=== PATIENT | female | born 1945 | race Caucasian/White ===

== ENCOUNTER 2016-10-08 17:31 | Inpatient (IN) | payer MEDICARE ==
[~2016-10-08] VITALS: Ht 165.1 cm; Wt 86.0 kg
[2016-10-08 17:32] VITALS: BP 150/92; PULSE 88; RESP 16; TEMP 98.6; O2SAT 96
--- NOTE | 2016-10-08 17:39 | PD ---
Physical Exam Date Seen by Provider: Oct 08, 2016 Time Seen by Provider: 17:37 Narrative 71 YOWF C/O CP AND ABD PAIN. X1HR PAIN PRESSURE 4/10. 9/10 EARLIER. PAIN HAD GONE TO HER BACK AND JAW. + DIAPHORESIS. NO H/O CARDIAC PROBLEMS. VS REVIEWED WAITING FOR BED PLACEMENT Data Data Last Documented VS Vital Signs Date Time Temp Pulse Resp B/P Pulse Ox O2 Delivery O2 Flow Rate FiO2 10/08/16 17:32 98.6 88 16 150/92 96 MDM Supervised Visit with KINGSLEY: Cecil Shea Oct 08, 2016 17:39
[2016-10-08] MEDS ORDERED: SODIUM CHLORIDE 0.9% FLUSH 10 ML FLUSH IVF PRN (17:45)
--- NOTE | 2016-10-08 18:37 | RADRPT ---
EXAM DATE/TIME: 10/08/2016 18:02 [place] COMPARISON: No previous studies available for comparison. INDICATIONS : Chest pain. MEDICAL HISTORY : None. SURGICAL HISTORY : None. ENCOUNTER: Initial ACUITY: 1 day PAIN SCORE: 9/10 LOCATION: Bilateral chest Middle, between shoulder blades. FINDINGS: PA and lateral views of the chest demonstrate the lungs to be symmetrically aerated without evidence of mass, infiltrate or effusion. The cardiomediastinal contours are unremarkable. Osseous structure s are intact. CONCLUSION: 1. No active disease. Cecil Krause MD on October 08, 2016 at 18:35 Board Certified Radiologist. This report was verified electronically.
[2016-10-08 18:54] LABS: AUTOMATED NEUTROPHIL # 4.1 TH/MM3 (1.8-7.7); BASOPHIL % 0.5 % (0.0-2.0); EOSINOPHIL # 0.1 TH/MM3 (0-0.4); EOSINOPHIL % 1.3 % (0.0-4.0); HEMATOCRIT 41.1 % (35.0-46.0); HEMO FLAGS DIFF FINAL; LYMPHOCYTE # 2.5 TH/MM3 (1.0-4.8); MEAN CELL VOLUME 90.8 FL (80.0-100.0); MEAN CORPUSCULAR HEMOGLOBIN 30.5 PG (27.0-34.0); MEAN CORPUSCULAR HGB CONC 33.6 % (32.0-36.0); NEUT % 56.2 % (16.0-70.0); PLATELET COUNT 316 TH/MM3 (150-450); RED BLOOD COUNT 4.53 MIL/MM3 (4.00-5.30); RED CELL DISTRIBUTION WIDTH 14.8 % (11.6-17.2); WHITE BLOOD COUNT 7.2 TH/MM3 (4.0-11.0)
[2016-10-08 19:14] LABS: ANION GAP 5 MEQ/L (5-15); BICARBONATE 29.9 MEQ/L (21.0-32.0); BLOOD UREA NITROGEN 21 MG/DL (7-18); CHLORIDE 104 MEQ/L (98-107); GLOMERULAR FILTRATION RATE 70 ML/MIN (>89); MAGNESIUM 2.6 MG/DL (1.5-2.5); SODIUM (NA) 139 MEQ/L (136-145)
[2016-10-08 19:15] LABS: APTT (PATIENT) 29.7 SEC (24.3-30.1); INTERNATIONAL NORMALIZED RATIO 0.9 RATIO; PROTHROMBIN TIME - PATIENT 10.3 SEC (9.8-11.6)
[2016-10-08 19:20] VITALS: BP_SYST 161; BP_SYST 176; BP_DIAS 84; BP_DIAS 90; PULSE 91; RESP 18; O2SAT 97
[2016-10-08 19:24] LABS: CREATINE KINASE 47 U/L (26-192)
[2016-10-08] MEDS ORDERED: LISI10TA3 PO (19:34)
[2016-10-08] MEDS ORDERED: ACID REFLUX (19:34)
[2016-10-08] MEDS ORDERED: CENTCHW4 CHEW (19:34)
[2016-10-08] MEDS ORDERED: ASPI81CH CHEW (19:34)
[2016-10-08] MEDS ORDERED: ASPIRIN 81 MG CHEW TAB CHEW ONE (19:45)
--- NOTE | 2016-10-08 19:48 | PD ---
HPI Chief Complaint: Chest Pain Time Seen by Provider: 19:15 Travel History International Travel<30 days: No Contact w/Intl Traveler<30days: No Traveled to known affect area: No History of Present Illness HPI 71-year-old female came to the emergency room with history of chest pain that started spontaneously while she was sitting and watching TV about 2 hours ago. Patient says that she had a busy day but was feeling all right. She just finished cooking dinner and sat down to watch some television when she started getting chest pressure that started from the center of her chest and spread across as a band. It was also in her upper abdominal area all across and went to her back and then radiated to both her jaws. It was severe and did not ease up. Her decided to bring her to the emergency room. Once she got here slowly it started to subside. Patient did not take any medications for it. As per her it lasted probably for 1 hour. Currently her pain is 0 out of 10. She cannot think of any aggravating or relieving factors. Patient says she had a similar but less intense pain that did not last for as long about one year ago. She went to see her senior games technician Dr. Degroot who did as per her all sorts of tests including EKG as well as possibly stress test. She was given a clean bill of health. Patient has significant family history for coronary artery disease. Her father and brother both had multiple vessel bypass surgeries. Patient is not a smoker. She has history of hypertension. She does take one baby aspirin every day but did not take one today. [facility] Past Medical History Narrative Medical List of her past medical, surgical, social and family history was reviewed from the nursing note. Diminished Hearing: Yes ([place] LEFT EAR) Hypertension: Yes Tetanus Vaccination: Unknown Influenza Vaccination: Yes ?: Not Ovarian Cysts: Yes Past Surgical History Cholecystectomy: Yes Hysterectomy: Yes Other Surgery: Yes (RHINOPLASTY, CHOLESTEROLGRANULOMA) Family History Family Myocardial Infarction: Yes Social History Alcohol Use: No Tobacco Use: No Substance Use: No Allergies-Medications (Allergen,Severity, Reaction): Coded Allergies: iodine (Verified Allergy, Severe, 10/08/16) Comments List of her allergies reviewed from the nursing note. Reported Meds & Prescriptions Reported Meds & Active Scripts Active Reported [Acid Reflux] Centrum (Multiple Vitamins W/ Minerals) 1 Chew 1 Tab CHEW DAILY Narrative Medication List of her home medications reviewed from the nursing note. Review of Systems Except as stated in HPI: all other systems reviewed are Neg Physical Exam Narrative GENERAL: Awake, alert, anxious, no obvious distress SKIN: Focused skin assessment warm/dry. HEAD: Atraumatic. Normocephalic. EYES: Pupils equal and round. No scleral icterus. No injection or drainage. ENT: No nasal bleeding or discharge. Mucous membranes pink and moist. NECK: Trachea midline. No JVD. CARDIOVASCULAR: Regular rate and rhythm. No murmur appreciated. RESPIRATORY: No accessory muscle use. Clear to auscultation. Breath sounds equal bilaterally. GASTROINTESTINAL: Abdomen soft, non-tender, nondistended. Hepatic and splenic margins not palpable. MUSCULOSKELETAL: No obvious deformities. No clubbing. No cyanosis. No edema. NEUROLOGICAL: Awake and alert. No obvious cranial nerve deficits. Motor grossly within normal limits. Normal speech. PSYCHIATRIC: Appropriate mood and affect; insight and judgment normal. Data Data Last Documented VS Vital Signs Date Time Temp Pulse Resp B/P (MAP) Pulse Ox O2 Delivery O2 Flow Rate FiO2 10/08/16 20:00 77 18 157/71 (99) 98 Room Air 10/08/16 17:32 98.6 Orders Orders Electrocardiogram (10/08/16 17:39) Basic Metabolic Panel (Bmp) (10/08/16 17:41) Ckmb (Isoenzyme) Profile (10/08/16 17:41) Complete Blood Count With Diff (10/08/16 17:41) Magnesium (Mg) (10/08/16 17:41) Prothrombin Time / Inr (Pt) (10/08/16 17:41) Act Partial Throm Time (Ptt) (10/08/16 17:41) Troponin I (10/08/16 17:41) Ecg Monitoring (10/08/16 17:41) Bilateral Bp Monitoring (10/08/16 17:41) Iv Access Insert/Monitor (10/08/16 17:41) Oximetry (10/08/16 17:41) Oxygen Administration (10/08/16 17:41) Sodium Chloride 0.9% Flush (Ns Flush) (10/08/16 17:45) Chest, Pa & Lat (10/08/16 17:41) Aspirin Chew (Aspirin Chew) (10/08/16 19:45) Admit Order (Ed Use Only) (10/08/16 20:10) Labs Laboratory Tests Test 10/08/16 18:07 White Blood Count 7.2 TH/MM3 Red Blood Count 4.53 MIL/MM3 Hemoglobin 13.8 GM/DL Hematocrit 41.1 % Mean Corpuscular Volume 90.8 FL Mean Corpuscular Hemoglobin 30.5 PG Mean Corpuscular Hemoglobin Concent 33.6 % Red Cell Distribution Width 14.8 % Platelet Count 316 TH/MM3 Mean Platelet Volume 8.6 FL Neutrophils (%) (Auto) 56.2 % Lymphocytes (%) (Auto) 35.0 % Monocytes (%) (Auto) 7.0 % Eosinophils (%) (Auto) 1.3 % Basophils (%) (Auto) 0.5 % Neutrophils # (Auto) 4.1 TH/MM3 Lymphocytes # (Auto) 2.5 TH/MM3 Monocytes # (Auto) 0.5 TH/MM3 Eosinophils # (Auto) 0.1 TH/MM3 Basophils # (Auto) 0.0 TH/MM3 CBC Comment DIFF FINAL Differential Comment Prothrombin Time 10.3 SEC Prothromb Time International Ratio 0.9 RATIO Activated Partial Thromboplast Time 29.7 SEC Blood Urea Nitrogen 21 MG/DL Creatinine 0.81 MG/DL Random Glucose 89 MG/DL Calcium Level 8.7 MG/DL Magnesium Level 2.6 MG/DL Sodium Level 139 MEQ/L Potassium Level 4.0 MEQ/L Chloride Level 104 MEQ/L Carbon Dioxide Level 29.9 MEQ/L Anion Gap 5 MEQ/L Estimat Glomerular Filtration Rate 70 ML/MIN Total Creatine Kinase 47 U/L Troponin I LESS THAN 0.02 NG/ML MDM Medical Decision Making Medical Screen Exam Complete: Yes Emergency Medical Condition: Yes Medical Record Reviewed: Yes Interpretation(s) Twelve-lead EKG was reviewed by me. Normal sinus rhythm, normal axis, nonspecific ST-T wave changes. Heart rate of 77 bpm. Differential Diagnosis ACS, non-STEMI Narrative Course 7:46 PM I explained to the patient that her chest pain sounds like a classic angina. The fact that this happened at rest and concern for unstable angina. I have ordered 2 baby aspirins for her. Blood test results of back and her troponin is negative. However given the classic nature of the history as well as significant family history and history of hypertension and her age I have decided to admit her. I discussed the case with Dr. Oseguera who is covering for her senior games technician. He agreed. He wants the patient to be nothing by mouth after midnight in preparation for possible cardiac catheterization tomorrow. Procedures EKG Prior to Arrival: Yes Diagnosis Primary Impression: Chest pain Admitting Information Admitting Physician Requests: Observation Scripts Nitroglycerin SL (Nitroglycerin SL) 0.4 Mg Subl 0.4 MG SL DIRECTED Y for CHEST PAIN, #15 TAB.SL 0 Refills ONE TABLET UNDER THE TONGUE NEEDED FOR CHEST PAIN, MAY REPEAT EVERY FIVE MINUTES FOR A TOTAL OF 3 DOSES OR CALL 911 IF NO RELIEF Prov: Brayden Jacobs MD 10/09/16 Pravastatin (Pravachol) 40 Mg Tab 40 MG PO DAILY for cholesterol, #30 TAB 0 Refills Prov: Brayden Jacobs MD 10/09/[address] (Adult Aspirin EC Low Strength) 81 Mg Tabec 81 MG PO DAILY for cad, #30 TAB 0 Refills Prov: Brayden Jacobs MD 10/09/16 Metoprolol Tartrate (Metoprolol Tartrate) 25 Mg Tab 25 MG PO Q12HR for htn, #60 TAB 0 Refills Prov: Brayden Jacobs MD 10/09/16 Janusz Robles MD Oct 08, 2016 19:48
[2016-10-08 20:00] VITALS: BP 157/71; PULSE 77; RESP 18; O2SAT 98
[2016-10-08] MEDS ORDERED: NITROGLYCERIN 2% OINT 1 GM PACKET TOPICAL PRN (20:30)
[2016-10-08] MEDS ORDERED: ACETAMINOPHEN/HYDROcodone 325 MG/5 MG TAB PO PRN (20:30)
[2016-10-08] MEDS ORDERED: LACTULOSE SYRUP 20 GM/30 ML CUP PO PRN (20:30)
[2016-10-08] MEDS ORDERED: MORPHINE SULFATE 4 MG/ML INJ IV PRN (20:30)
[2016-10-08] MEDS ORDERED: ONDANSETRON HCL 4 MG/2 ML VIAL IVP PRN (20:30)
[2016-10-08] MEDS ORDERED: HEPARIN-D5W 25,000 U/250 ML 250 ML IV SCH (20:30)
[2016-10-08] MEDS ORDERED: SODIUM CHLORIDE 0.9% FLUSH 10 ML FLUSH IV FLUSH PRN (20:30)
[2016-10-08] MEDS ORDERED: BISACODYL 10 MG SUPP RECTAL PRN (20:30)
[2016-10-08] MEDS ORDERED: SENNOSIDES 8.6 MG TAB PO PRN (20:30)
[2016-10-08] MEDS ORDERED: ACETAMINOPHEN 325 MG TAB PO PRN (20:30)
[2016-10-08] MEDS ORDERED: MAGNESIUM HYDROXIDE SUSP 30 ML CUP PO PRN (20:30)
--- NOTE | 2016-10-08 20:34 | HHI.HP ---
[facility] Service [place] [facility] Primary Care Physician Dwight Arceo M.D. Admission Diagnosis chest pain, unstable angina Diagnoses: (1) Chest pain Diagnosis: Principal (2) Unstable angina Diagnosis: Principal (3) Dehydration Diagnosis: Principal (4) HTN (hypertension) Diagnosis: Principal Travel History International Travel<30 Days: No Contact w/Intl Traveler <30 Da: No Traveled to Known Affected Are: No History of Present Illness This is a 71-year-old female with a PMH of HTN who presented to the ER with complaints of acute onset of chest pain starting earlier tonight. States that she was watching TV when she had sudden onset of severe pressure-like chest pain with radiation to her neck and jaw. Reports associated SOB during episode of chest pain. Follows w/ Dr. Degroot as outpatient, reports previous Stress Test approx 1yr ago, reportedly normal per patient. On arrival, BP 150/92, HR 88, O2 sat 96% on RA, Afebrile. CBC unremarkable. Camille unremarkable except for BUN 21. GFR 70. Troponin negative. INR 0.9. CXR with no acute findings. Dr. Oseguera consulted by ER physician, recommended admission w/ plan for Cath in am. Pt currently chest pain free. Review of Systems Except as stated in HPI: all other systems reviewed are Neg ROS: 14 point review of systems otherwise negative. Past Family Social History Past Medical History PMH: HTN Past Surgical History PAST SURGICAL HISTORY: Cholecystectomy, Hysterectomy, Rhinoplasty Allergies: Coded Allergies: iodine (Verified Allergy, Severe, 10/08/16) Family History PAST FAMILY HISTORY: Reviewed. No h/o DM or CAD Social History PAST SOCIAL HISTORY: Negative for alcohol, tobacco or drugs. Physical Exam Vital Signs Vital Signs Date Time Temp Pulse Resp B/P Pulse Ox O2 Delivery O2 Flow Rate FiO2 10/08/16 19:20 91 18 176/84 97 Room Air 161/90 10/08/16 19:20 18 97 Room Air 10/08/16 19:20 97 Room Air 10/08/16 17:32 98.6 88 16 150/92 96 Physical Exam PE: GENERAL: Very pleasant elderly white female in no acute distress. HEENT: PERRLA, EOMI. No scleral icterus or conjunctival pallor. No lid lag or facial droop. CARDIOVASCULAR: Regular rate and rhythm. No obvious murmurs to auscultation. No chest tenderness to palpation. RESPIRATORY: No obvious rhonchi or wheezing. Clear to auscultation. Breath sounds equal bilaterally. GASTROINTESTINAL: Abdomen soft, non-tender, nondistended. BS normal. MUSCULOSKELETAL: Extremities without clubbing, cyanosis, or edema. No obvious deformities. NEUROLOGICAL: Awake, alert and oriented x4. No focal neurologic deficits. Moving both upper and lower extremities spontaneously. Laboratory Laboratory Tests Test 10/08/16 18:07 White Blood Count 7.2 Red Blood Count 4.53 Hemoglobin 13.8 Hematocrit 41.1 Mean Corpuscular Volume 90.8 Mean Corpuscular Hemoglobin 30.5 Mean Corpuscular Hemoglobin 33.6 Concent Red Cell Distribution Width 14.8 Platelet Count 316 Mean Platelet Volume 8.6 Neutrophils (%) (Auto) 56.2 Lymphocytes (%) (Auto) 35.0 Monocytes (%) (Auto) 7.0 Eosinophils (%) (Auto) 1.3 Basophils (%) (Auto) 0.5 Neutrophils # (Auto) 4.1 Lymphocytes # (Auto) 2.5 Monocytes # (Auto) 0.5 Eosinophils # (Auto) 0.1 Basophils # (Auto) 0.0 CBC Comment DIFF FINAL Differential Comment Prothrombin Time 10.3 Prothromb Time International 0.9 Ratio Activated Partial 29.7 Thromboplast Time Sodium Level 139 Potassium Level 4.0 Chloride Level 104 Carbon Dioxide Level 29.9 Anion Gap 5 Blood Urea Nitrogen 21 Creatinine 0.81 Estimat Glomerular Filtration 70 Rate Random Glucose 89 Calcium Level 8.7 Magnesium Level 2.6 Total Creatine Kinase 47 Troponin I LESS THAN 0.02 Result Diagram: 10/08/16180610/08/161806 Assessment and Plan Problem List: (1) Chest pain ICD Code: R07.9 Status: Acute (2) Unstable angina ICD Code: I20.0 Status: Acute (3) HTN (hypertension) ICD Code: I10 Status: Acute (4) Dehydration ICD Code: E86.0 Status: Acute Assessment and Plan A/P: 1. Chest Pain: acute onset of substernal chest pain at rest. Initial trop negative, EKG w/ no acute ischemia. Check serial cardiac enzymes, lipid profile , Hgb A1c, TSH. Start ASA, Statin, B-janice. 2. Unstable Angina: chest pain at rest, concerning for UA. Follows w/ Dr. Degroot as outpatient, Dr. Oseguera consulted by ER physician, plan for Cath in am. Will start Heparin gtt, keep NPO, IVF, NTG/Morphine as needed. Currently chest pain free. 3. Dehydration: BUN 21, GFR 70, pending U/a, IVF for hydration, repeat labs in am. 4. HTN: BP 140-160's. Start Metoprolol, monitor BP 5. DVT Prophylaxis: Heparin gtt 6. Social work for d/c planning as needed. 7. Case discussed w/ ER physician at length. Physician Certification 2 Midnight Certification Type: Admission for Inpatient Services Order for Inpatient Services The services are ordered in accordance with Medicare regulations or non- Medicare payer requirements, as applicable. In the case of services not specified as inpatient-only, they are appropriately provided as inpatient services in accordance with the 2-midnight benchmark. Estimated LOS (days): 2 days is the estimated time the patient will need to remain in the hospital, assuming treatment plan goals are met and no additional complications. Post-Hospital Plan: Not yet determined Problem Qualifiers (1) Chest pain: Qualified Code: R07.9 - Chest pain, unspecified type Abbi Pedroza MD Oct 08, 2016 20:34
[2016-10-08 21:00] VITALS: BP 149/77; PULSE 75; RESP 18; O2SAT 97
[2016-10-08] MEDS: SODIUM CHLORIDE 0.9% FLUSH 10 ML FLUSH IV FLUSH SCH (21:00)
[2016-10-08] MEDS: SODIUM CHLOR 0.9% 1000 ML INJ 1,000 ML IV SCH (22:19)
[2016-10-08] MEDS: DOCUSATE SODIUM 50 MG/SENNA 8.6 MG TAB PO SCH (22:19)
[2016-10-08] MEDS: METOPROLOL TARTRATE 25 MG TAB PO SCH (22:19)
[2016-10-08 22:21] VITALS: BP 153/72; PULSE 71; RESP 18; O2SAT 97
[2016-10-09] VITALS (9 sets, daily range): BP systolic 111–157; BP diastolic 59–83; PULSE 60–85; RESP 16–18; TEMP 97.8–98; O2SAT 95–100
[2016-10-09 04:11] LABS: AUTOMATED NEUTROPHIL # 3.1 TH/MM3 (1.8-7.7); BASOPHIL % 0.4 % (0.0-2.0); EOSINOPHIL # 0.1 TH/MM3 (0-0.4); EOSINOPHIL % 1.8 % (0.0-4.0); HEMATOCRIT 37.5 % (35.0-46.0); HEMO FLAGS DIFF FINAL; LYMPH % 43.2 % (9.0-44.0); LYMPHOCYTE # 2.8 TH/MM3 (1.0-4.8); MEAN CELL VOLUME 90.4 FL (80.0-100.0); MEAN CORPUSCULAR HEMOGLOBIN 30.6 PG (27.0-34.0); MEAN CORPUSCULAR HGB CONC 33.8 % (32.0-36.0); NEUT % 47.6 % (16.0-70.0); PLATELET COUNT 259 TH/MM3 (150-450); RED BLOOD COUNT 4.14 MIL/MM3 (4.00-5.30); RED CELL DISTRIBUTION WIDTH 14.9 % (11.6-17.2); WHITE BLOOD COUNT 6.5 TH/MM3 (4.0-11.0)
[2016-10-09 04:18] LABS: APTT (PATIENT) 44.7 SEC (24.3-30.1)
[2016-10-09 04:33] LABS: ALT (GPT) 15 U/L (10-53); ANION GAP 8 MEQ/L (5-15); AST (GOT) 13 U/L (15-37); BICARBONATE 26.1 MEQ/L (21.0-32.0); BLOOD UREA NITROGEN 17 MG/DL (7-18); CHLORIDE 110 MEQ/L (98-107); GLOMERULAR FILTRATION RATE 92 ML/MIN (>89); POTASSIUM 3.8 MEQ/L (3.5-5.1); SODIUM (NA) 144 MEQ/L (136-145)
[2016-10-09 04:44] LABS: ALKALINE PHOSPHATASE 70 U/L (45-117); HDL CHOLESTEROL 60.6 MG/DL (40.0-60.0); LDL CHOLESTEROL 95 MG/DL (0-99); TOTAL BILIRUBIN ADULT 0.2 MG/DL (0.2-1.0)
[2016-10-09] MEDS: SODIUM CHLOR 0.9% 1000 ML INJ 1,000 ML IV SCH (07:23)
[2016-10-09] MEDS: METOPROLOL TARTRATE 25 MG TAB PO SCH (08:03)
[2016-10-09] MEDS: DOCUSATE SODIUM 50 MG/SENNA 8.6 MG TAB PO SCH (08:05)
--- NOTE | 2016-10-09 08:31 | HHI.PR ---
Subjective Remarks This is a pleasant 71 y/o Female with Hypertension, came to ER with Chest pain, her Primary clinical services specialist is Doctor Mikayla, she had Stress test one year ago reported as Normal. Seen in her bedroom in the presence of her , her Troponin has been negative, Negative nuclear stress test 2016 recommended for outpatient Cardiac Cath on Wednesday next week, Discharge new medicines, Aspirin 81 mg Metoprolol 25 mg BID and Pravastatin 40 mg daily. nitro SL 0.4 mg PRN for chest pain. okay to discharge from clinical services specialist standpoint. Objective Vital Signs Date Time Temp Pulse Resp B/P Pulse Ox O2 Delivery O2 Flow Rate FiO2 10/09/16 07:10 97.9 74 16 127/75 99 Room Air 10/09/16 07:10 74 16 99 Room Air 10/09/16 07:10 16 99 Room Air 10/09/16 07:10 97.8 81 16 127/75 98 Room Air 10/09/16 05:08 67 18 124/59 95 Room Air 10/09/16 02:41 60 18 111/76 98 Room Air 10/09/16 00:00 74 18 127/62 97 Room Air 10/08/16 22:21 71 18 153/72 97 Room Air 10/08/16 21:00 75 18 149/77 97 Room Air 10/08/16 20:00 77 18 157/71 98 Room Air 10/08/16 19:20 91 18 176/84 97 Room Air 161/90 10/08/16 19:20 18 97 Room Air 10/08/16 19:20 97 Room Air 10/08/16 17:32 98.6 88 16 150/92 96 Result Diagram: 10/09/16 0351 10/09/16 0351 Imaging Last Impressions Chest X-Ray 10/08/16 1741 Signed Impressions: Service Date/Time: September 18:02 - CONCLUSION: 1. No active disease. Cecil Krause MD Procedures None Other Results Laboratory Tests Test 10/08/16 10/09/16 18:07 03:51 Prothrombin Time 10.3 SEC Prothromb Time International 0.9 RATIO Ratio Magnesium Level 2.6 MG/DL Total Creatine Kinase 47 U/L White Blood Count 6.5 TH/MM3 Red Blood Count 4.14 MIL/MM3 Hemoglobin 12.7 GM/DL Hematocrit 37.5 % Mean Corpuscular Volume 90.4 FL Mean Corpuscular Hemoglobin 30.6 PG Mean Corpuscular Hemoglobin 33.8 % Concent Red Cell Distribution Width 14.9 % Platelet Count 259 TH/MM3 Mean Platelet Volume 8.5 FL Neutrophils (%) (Auto) 47.6 % Lymphocytes (%) (Auto) 43.2 % Monocytes (%) (Auto) 7.0 % Eosinophils (%) (Auto) 1.8 % Basophils (%) (Auto) 0.4 % Neutrophils # (Auto) 3.1 TH/MM3 Lymphocytes # (Auto) 2.8 TH/MM3 Monocytes # (Auto) 0.5 TH/MM3 Eosinophils # (Auto) 0.1 TH/MM3 Basophils # (Auto) 0.0 TH/MM3 CBC Comment DIFF FINAL Differential Comment Activated Partial 44.7 SEC Thromboplast Time Sodium Level 144 MEQ/L Potassium Level 3.8 MEQ/L Chloride Level 110 MEQ/L Carbon Dioxide Level 26.1 MEQ/L Anion Gap 8 MEQ/L Blood Urea Nitrogen 17 MG/DL Creatinine 0.64 MG/DL Estimat Glomerular Filtration 92 ML/MIN Rate Random Glucose 83 MG/DL Calcium Level 8.1 MG/DL Total Bilirubin 0.2 MG/DL Aspartate Amino Transf 13 U/L (AST/SGOT) Alanine Aminotransferase 15 U/L (ALT/SGPT) Alkaline Phosphatase 70 U/L Troponin I LESS THAN 0.02 NG/ML Total Protein 6.4 GM/DL Albumin 2.8 GM/DL Triglycerides Level 79 MG/DL Cholesterol Level 171 MG/DL LDL Cholesterol 95 MG/DL HDL Cholesterol 60.6 MG/DL Cholesterol/HDL Ratio 2.82 RATIO Thyroid Stimulating Hormone 5.430 uIU/ML 3rd Gen Objective Remarks PE: No acute distress. GENERAL: Very pleasant elderly white female in no acute distress. HEENT: PERRLA, EOMI. No scleral icterus or conjunctival pallor. No lid lag or facial droop. CARDIOVASCULAR: Regular rate and rhythm. No obvious murmurs to auscultation. No chest tenderness to palpation. RESPIRATORY: No obvious rhonchi or wheezing. Clear to auscultation. Breath sounds equal bilaterally. GASTROINTESTINAL: Abdomen soft, non-tender, nondistended. BS normal. MUSCULOSKELETAL: Extremities without clubbing, cyanosis, or edema. No obvious deformities. NEUROLOGICAL: Awake, alert and oriented x4. No focal neurologic deficits. Moving both upper and lower extremities spontaneously. Medications and IVs Current Medications Medications (Trade) Dose Ordered Sig/Corinne Route Start Time Stop Time Status Last Admin (Heparin-D5W Inj) 250 ml @ 0 mls/hr TITRATE IV 10/08/16 20:30 10/08/16 22:13 Nitroglycerin 0.5 inch 0.5 inch Q6H PRN TOPICAL 10/08/16 20:30 (NS 1000 ml Inj) 1,000 ml @ 100 mls/hr Q10H IV 10/08/16 20:28 10/09/16 07:23 (NS Flush) 2 ml UNSCH PRN IV FLUSH 10/08/16 20:30 (NS Flush) 2 ml BID IV FLUSH 10/08/16 21:00 (Zofran Inj) 4 mg Q6H PRN IVP 10/08/16 20:30 (Tylenol) 650 mg Q6H PRN PO 10/08/16 20:30 (Centre 5-325 Mg) 1 tab Q4H PRN PO 10/08/16 20:30 (Morphine Inj) 2 mg Q3H PRN IV 10/08/16 20:30 (Cari-Colace) 1 tab BID PO 10/08/16 21:00 10/09/16 08:05 (Milk Of Magnesia Liq) 30 ml Q12H PRN PO 10/08/16 20:30 (Senokot) 17.2 mg Q12H PRN PO 10/08/16 20:30 (Dulcolax Supp) 10 mg DAILY PRN RECTAL 10/08/16 20:30 (Lactulose Liq) 30 ml DAILY PRN PO 10/08/16 20:30 (Pravachol) 40 mg DAILY PO 10/09/16 09:00 10/09/16 08:04 (Ecotrin Ec) 81 mg DAILY PO 10/09/16 09:00 10/09/16 08:04 (Lopressor) 25 mg Q12HR PO 10/08/16 21:00 10/09/16 08:03 A/P Assessment and Plan 1. Chest Pain: acute onset of substernal chest pain at rest. Initial trop negative, EKG w/ no acute ischemia. Check serial cardiac enzymes, lipid profile , Hgb A1c, TSH. Start ASA, Statin, B-janice. as per Cardiology to continue Aspirin 81 mg daily, Metoprolol 25 mg BID and Atorvastatin 40 mg daily, Nitro SL tablets 0.4 PRN for chest pain, Cardiac Cath as outpatient for Wednesday10/13/16 2. Unstable Angina: chest pain at rest, Cardiac enzymes negative. 3. Dehydration: BUN 21, GFR 70, pending U/a, IVF for hydration, repeat labs in am. 4. HTN: BP 140-160's. continue metoprolol 5. Hyperlipidemia continue Atorvastatin. DVT Prophylaxis: Heparin gtt Discharge Planning Discharge home as per Cardiology and follow next Wednesday10/13/16 for Cardiac Cath. Brayden Jacobs MD Oct 09, 2016 08:31
[2016-10-09] MEDS: SODIUM CHLORIDE 0.9% FLUSH 10 ML FLUSH IV FLUSH SCH (08:54)
[2016-10-09] MEDS ORDERED: ASPIRIN EC 81 MG TABEC PO SCH (09:00)
[2016-10-09] MEDS ORDERED: PRAVASTATIN SOD 40 MG TAB PO SCH (09:00)
--- NOTE | 2016-10-09 09:13 | EKG ---
Date Performed: 10/08/2016 Time Performed: 18:02:20 PTAGE: 71 years EKG: Sinus rhythm NORMAL ECG NO PREVIOUS TRACING DOCTOR: Bhargav Rocha Interpretating Date/Time 10/09/2016 09:12:42
[2016-10-09 12:35] LABS: APTT (PATIENT) 43.3 SEC (24.3-30.1)
--- NOTE | 2016-10-09 15:30 | PD.CONS ---
HPI Service Cardiology physicians Consult Requested By Dr Lara Reason for Consult unstable angina Primary Care Physician Dwight Arceo M.D. History of Present Illness The patient is a 71 year old female known to our practice with a medical history of chest pain with negative nuclear stress test last year, HTN, obesity and family history of ASHD. She presented to the hospital for an acute onset of left upper quadrat pain that radiated to substernal region and to her jaw associated with diaphoresis that lasted one hour. She took ASA. The pain subsided without nitroglycerin. She has been chest pain free since and remains chest pain free on evaluation today. She admits that on Wednesday when walking her usual 1 1/4 mile walk she felt nauseous without chest pain at the end of her walk that she attributed to heat. She has not completed that walk since. She has GERD symptoms that are consistent with food. Review of Systems Consitutional: DENIES: Fatigue, Fever, Chills, Weight gain, Weight loss Eyes: DENIES: Amaurosis Fugax, Change in vision HEENT: DENIES: Lightheadedness, Change in hearing Respiratory: DENIES: See HPI, Cough, Snoring, Shortness of breath, Wheezing, Sputum production Cardiovascular: COMPLAINS OF: Chest pain, DENIES: See HPI, Palpitations, Syncope, Tachycardia Gastrointestinal: COMPLAINS OF: Nausea, Reflux, DENIES: Vomiting, Change in bowel habits, Bloody stools, Melena Genitourinary: DENIES: Urinary incontinence, Difficulty voiding Integumentary: DENIES: Rash Neurologic: DENIES: Tingling or numbness, Memory problems, Poor Balance, Stroke symptoms Musculoskeletal: DENIES: Joint pain, Muscle pain, Limited range of motion, Back pain Psychiatric: DENIES: Anxiety, Depression, Sleep disturbances Hematologic: DENIES: Bruising tendencies, Bleeding tendencies Endocrine: DENIES: Weight gain, Weight loss, Thyroid disease Past Family Social History Allergies: Coded Allergies: iodine (Verified Allergy, Severe, 10/08/16) Past Medical History HTN Chest pain GERD Former smoker HLD Past Surgical History cholecystectomy hysterectomy fractured patella granuloma ovarian cystectomy Reported Medications Reported Meds & Active Scripts Active Reported [Acid Reflux] Centrum (Multiple Vitamins W/ Minerals) 1 Chew 1 Tab CHEW DAILY Aspirin 81 Mg Chew 81 Mg CHEW DAILY Lisinopril 10 Mg Tab 10 Mg PO HS Active Ordered Medications Current Medications Medications (Trade) Dose Ordered Sig/Corinne Route Start Time Stop Time Status Last Admin (Heparin-D5W Inj) 250 ml @ 0 mls/hr TITRATE IV 10/08/16 20:30 10/08/16 22:13 Nitroglycerin 0.5 inch 0.5 inch Q6H PRN TOPICAL 10/08/16 20:30 (NS 1000 ml Inj) 1,000 ml @ 100 mls/hr Q10H IV 10/08/16 20:28 10/09/16 07:23 (NS Flush) 2 ml UNSCH PRN IV FLUSH 10/08/16 20:30 (NS Flush) 2 ml BID IV FLUSH 10/08/16 21:00 (Zofran Inj) 4 mg Q6H PRN IVP 10/08/16 20:30 (Tylenol) 650 mg Q6H PRN PO 10/08/16 20:30 ([place] 5-325 Mg) 1 tab Q4H PRN PO 10/08/16 20:30 (Morphine Inj) 2 mg Q3H PRN IV 10/08/16 20:30 (Cari-Colace) 1 tab BID PO 10/08/16 21:00 10/09/16 08:05 (Milk Of Magnesia Liq) 30 ml Q12H PRN PO 10/08/16 20:30 (Senokot) 17.2 mg Q12H PRN PO 10/08/16 20:30 (Dulcolax Supp) 10 mg DAILY PRN RECTAL 10/08/16 20:30 (Lactulose Liq) 30 ml DAILY PRN PO 10/08/16 20:30 (Pravachol) 40 mg DAILY PO 10/09/16 09:00 10/09/16 08:04 (Ecotrin Ec) 81 mg DAILY PO 10/09/16 09:00 10/09/16 08:04 (Lopressor) 25 mg Q12HR PO 10/08/16 21:00 10/09/16 08:03 Family History Brother CABG in his 50s Father LA in his 60s Social History former smoker no etoh Physical Exam Vital Signs Vital Signs Date Time Temp Pulse Resp B/P Pulse Ox O2 Delivery O2 Flow Rate FiO2 10/09/16 14:00 97.9 80 16 157/83 99 Room Air 10/09/16 11:51 98.0 85 16 144/83 99 Room Air 10/09/16 10:18 97.8 68 16 153/74 100 Room Air 10/09/16 09:00 97.8 75 16 143/77 100 Room Air 10/09/16 07:10 97.9 74 16 127/75 99 Room Air 10/09/16 07:10 74 16 99 Room Air 10/09/16 07:10 16 99 Room Air 10/09/16 07:10 97.8 81 16 127/75 98 Room Air 10/09/16 05:08 67 18 124/59 95 Room Air 10/09/16 02:41 60 18 111/76 98 Room Air 10/09/16 00:00 74 18 127/62 97 Room Air 10/08/16 22:21 71 18 153/72 97 Room Air 10/08/16 21:00 75 18 149/77 97 Room Air 10/08/16 20:00 77 18 157/71 98 Room Air 10/08/16 19:20 91 18 176/84 97 Room Air 161/90 10/08/16 19:20 18 97 Room Air 10/08/16 19:20 97 Room Air 10/08/16 17:32 98.6 88 16 150/92 96 Physical Exam GENERAL: middle aged female, bedside SKIN: Warm and dry. HEAD: Atraumatic. Normocephalic. EYES: Pupils equal and round. No scleral icterus. No injection or drainage. ENT: No nasal bleeding or discharge. Mucous membranes pink and moist. NECK: Trachea midline. No JVD. CARDIOVASCULAR: Regular rate and rhythm. RESPIRATORY: No accessory muscle use. Clear to auscultation. Breath sounds equal bilaterally. GASTROINTESTINAL: Abdomen soft, non-tender, nondistended. Hepatic and splenic margins not palpable. MUSCULOSKELETAL: Extremities without clubbing, cyanosis, or edema. No obvious deformities. NEUROLOGICAL: Awake and alert. No obvious cranial nerve deficits. Motor grossly within normal limits. Five out of 5 muscle strength in the arms and legs. Normal speech. PSYCHIATRIC: Appropriate mood and affect; insight and judgment normal. Laboratory Laboratory Tests Test 10/08/16 10/08/16 10/09/16 10/09/16 18:07 23:50 03:51 10:20 White Blood Count 7.2 6.5 Red Blood Count 4.53 4.14 Hemoglobin 13.8 12.7 Hematocrit 41.1 37.5 Mean Corpuscular Volume 90.8 90.4 Mean Corpuscular Hemoglobin 30.5 30.6 Mean Corpuscular Hemoglobin 33.6 33.8 Concent Red Cell Distribution Width 14.8 14.9 Platelet Count 316 259 Mean Platelet Volume 8.6 8.5 Neutrophils (%) (Auto) 56.2 47.6 Lymphocytes (%) (Auto) 35.0 43.2 Monocytes (%) (Auto) 7.0 7.0 Eosinophils (%) (Auto) 1.3 1.8 Basophils (%) (Auto) 0.5 0.4 Neutrophils # (Auto) 4.1 3.1 Lymphocytes # (Auto) 2.5 2.8 Monocytes # (Auto) 0.5 0.5 Eosinophils # (Auto) 0.1 0.1 Basophils # (Auto) 0.0 0.0 CBC Comment DIFF FINAL DIFF FINAL Differential Comment Prothrombin Time 10.3 Prothromb Time International 0.9 Ratio Activated Partial 29.7 44.7 43.3 Thromboplast Time Sodium Level 139 144 Potassium Level 4.0 3.8 Chloride Level 104 110 Carbon Dioxide Level 29.9 26.1 Anion Gap 5 8 Blood Urea Nitrogen 21 17 Creatinine 0.81 0.64 Estimat Glomerular Filtration 70 92 Rate Random Glucose 89 83 Calcium Level 8.7 8.1 Magnesium Level 2.6 Total Creatine Kinase 47 Troponin I LESS THAN 0.02 LESS THAN 0.02 LESS THAN 0.02 Total Bilirubin 0.2 Aspartate Amino Transf 13 (AST/SGOT) Alanine Aminotransferase 15 (ALT/SGPT) Alkaline Phosphatase 70 Total Protein 6.4 Albumin 2.8 Triglycerides Level 79 Cholesterol Level 171 LDL Cholesterol 95 HDL Cholesterol 60.6 Cholesterol/HDL Ratio 2.82 Thyroid Stimulating Hormone 5.430 3rd Gen Result Diagram: 10/09/16 0351 10/09/16 0351 Imaging Last 72 hours Impressions Chest X-Ray 10/08/16 1741 Signed Impressions: Service Date/Time: September 18:02 - CONCLUSION: 1. No active disease. Cecil Krause MD Assessment and Plan Assessment and Plan Chest pain, troponin negative X 3, EKG no acute ischemia. Negative nuclear stress test 2015 Family history ASHD HTN HLD GERD Obesity PLAN: After prolonged discussion, including inpatient cath, outpatient cath or repeat nuclear stress test. Came to the conclusion to do an outpatient cardiac cath on Wednesday. The patient understands that if she develops any chest pain to take a nitroglycerin and go the ER. She has been instructed to maintain light activity until cardiac cath on wednesday. Discharge new medications ASA 81 mg Metoprolol 25 mg BID prevastatin 40 mg Nitro SL tablets 0.4 PRN for chest pain Patient seen and evaluated by Dr Degorot who completed a face to face encounter , performed physical exam and participated in assessment and plan Zoie Dela Cruz Oct 09, 2016 15:30
[2016-10-09] MEDS ORDERED: NITR1SUB3 SL (16:06)
[2016-10-09] MEDS ORDERED: METO25TA3 PO (16:06)
[2016-10-09] MEDS ORDERED: PRAV40TA PO (16:06)
[2016-10-09] MEDS ORDERED: ASPI-99 PO (16:06)
--- NOTE | 2016-10-09 16:08 | HHI.DS ---
Discharge Summary Admission Date Oct 08, 2016 at 20:34 Discharge Date: Oct 09, 2016 Admitting Diagnosis chest pain, unstable angina (1) Chest pain ICD Code: R07.9 Diagnosis: Principal (2) Unstable angina ICD Code: I20.0 Diagnosis: Principal (3) HTN (hypertension) ICD Code: I10 Diagnosis: Principal (4) Dehydration ICD Code: E86.0 Diagnosis: Principal Procedures none Brief History - From Admission This is a 71-year-old female with a PMH of HTN who presented to the ER with complaints of acute onset of chest pain starting earlier tonight. States that she was watching TV when she had sudden onset of severe pressure-like chest pain with radiation to her neck and jaw. Reports associated SOB during episode of chest pain. Follows w/ Dr. Degroot as outpatient, reports previous Stress Test approx 1yr ago, reportedly normal per patient. On arrival, BP 150/92, HR 88, O2 sat 96% on RA, Afebrile. CBC unremarkable. Camille unremarkable except for BUN 21. GFR 70. Troponin negative. INR 0.9. CXR with no acute findings. Dr. Oseguera consulted by ER physician, recommended admission w/ plan for Cath in am. Pt currently chest pain free. CBC/BMP: 10/09/16 0351 10/09/16 0351 Significant Findings Laboratory Tests Test 10/08/16 10/08/16 10/09/16 10/09/16 18:07 23:50 03:51 10:20 Blood Urea Nitrogen 21 MG/DL (7-18) Estimat Glomerular Filtration 70 ML/MIN (>89) Rate Magnesium Level 2.6 MG/DL (1.5-2.5) Troponin I LESS THAN 0.02 LESS THAN 0.02 LESS THAN 0.02 NG/ML NG/ML NG/ML (0.02-0.05) (0.02-0.05) (0.02-0.05) Activated Partial 44.7 SEC 43.3 SEC Thromboplast Time (24.3-30.1) (24.3-30.1) Chloride Level 110 MEQ/L (98-107) Calcium Level 8.1 MG/DL (8.5-10.1) Aspartate Amino Transf 13 U/L (15-37) (AST/SGOT) Albumin 2.8 GM/DL (3.4-5.0) HDL Cholesterol 60.6 MG/DL (40.0-60.0) Thyroid Stimulating Hormone 5.430 uIU/ML 3rd Gen (0.358-3.740) Imaging Last Impressions Chest X-Ray 10/08/16 1741 Signed Impressions: Service Date/Time: , October 08, 2016 18:02 - CONCLUSION: 1. No active disease. Cecil Krause MD PE at Discharge PE: No acute distress. GENERAL: Very pleasant elderly white female in no acute distress. HEENT: PERRLA, EOMI. No scleral icterus or conjunctival pallor. No lid lag or facial droop. CARDIOVASCULAR: Regular rate and rhythm. No obvious murmurs to auscultation. No chest tenderness to palpation. RESPIRATORY: No obvious rhonchi or wheezing. Clear to auscultation. Breath sounds equal bilaterally. GASTROINTESTINAL: Abdomen soft, non-tender, nondistended. BS normal. MUSCULOSKELETAL: Extremities without clubbing, cyanosis, or edema. No obvious deformities. NEUROLOGICAL: Awake, alert and oriented x4. No focal neurologic deficits. Moving both upper and lower extremities spontaneously. Hospital Course This is a pleasant 71 y/o Female with Hypertension, came to ER with Chest pain, her Primary customer relationship specialist is Doctor Degroot, she had Stress test one year ago reported as Normal. Seen in her bedroom in the presence of her , her Troponin has been negative, Negative nuclear stress test 2016 recommended for outpatient Cardiac Cath on Wednesday next week, Discharge new medicines, Aspirin 81 mg Metoprolol 25 mg BID and Pravastatin 40 mg daily. nitro SL 0.4 mg PRN for chest pain. okay to discharge from customer relationship specialist standpoint. Assessment and Plan 1. Chest Pain: acute onset of substernal chest pain at rest. Initial trop negative, EKG w/ no acute ischemia. Check serial cardiac enzymes, lipid profile , Hgb A1c, TSH. Start ASA, Statin, B-janice. as per Cardiology to continue Aspirin 81 mg daily, Metoprolol 25 mg BID and Atorvastatin 40 mg daily, Nitro SL tablets 0.4 PRN for chest pain, Cardiac Cath as outpatient for Wednesday10/13/16 2. Unstable Angina: chest pain at rest, Cardiac enzymes negative. 3. Dehydration: BUN 21, GFR 70, pending U/a, IVF for hydration, repeat labs in am. 4. HTN: BP 140-160's. continue metoprolol 5. Hyperlipidemia continue Atorvastatin. DVT Prophylaxis: Heparin gtt Discharge Planning Discharge home as per Cardiology and follow next Wednesday10/13/16 for Cardiac Cath. Pt Condition on Discharge: Good Discharge Disposition: Discharge Home Discharge Time: <= 30 minutes Discharge Instructions DIET: Follow Instructions for: Heart Healthy Diet Activities you can perform: Regular-No Restrictions, See Additionl Instruction Other Activity Instructions: No Strenuous Exercise. Brayden Jacobs MD Oct 09, 2016 16:08
[2016-10-09 17:14] LABS: HEMOGLOBIN A1a 0.9 %; HEMOGLOBIN A1b 0.9 %; HEMOGLOBIN Ao 85.5 %; HEMOGLOBIN F 0.9 %; HEMOGLOBIN LA1C 1.8 %; HEMOGLOBIN P3 3.9 %
== END 2016-10-09 17:01 | disposition home or self-care (01) | DRG 311 ==
LOC: NEPC 17:31 → NEDA 20:12 → OBSVTOIN 20:34 → NEDH 10-09 00:34
PROVIDERS: ADMIT Internal Medicine; ATTEND Internal Medicine
DX: I20.0 Unstable angina (principal); E86.0 Dehydration; I10 Essential (primary) hypertension; Z82.49 Family history of ischemic heart disease and other diseases of the circulatory system; H91.92 Unspecified hearing loss, left ear; E66.9 Obesity, unspecified; K21.9 Gastro-esophageal reflux disease without esophagitis; Z87.891 Personal history of nicotine dependence; E78.5 Hyperlipidemia, unspecified
CPT/HCPCS: 71020; 80048; 80053; 80061; 82550; 83036; 83735; 84443; 84484; 85025; 85610; 85730; 93005; J1644; J7030